=== PATIENT | female | born 1990 | race Caucasian/White ===

== ENCOUNTER → 2019-11-25 14:04 | Outpatient (BNVA) | payer MEDICAID, SELFPAY | PROVIDERS: Family Provider Nurse Practitioner Family; PCP Nurse Practitioner Family; Visit Provider Nurse Practitioner Family | DX: M79.675 Pain in left toe(s) (principal); E28.2 Polycystic ovarian syndrome | CPT/HCPCS: 73630; 80053; 80061; 84443; 85025 ==

== ENCOUNTER → 2020-01-05 13:08 | Outpatient (BNVA) | payer MEDICAID, SELFPAY | PROVIDERS: Family Provider Nurse Practitioner Family; PCP Nurse Practitioner Family; Visit Provider Specialist | DX: G43.019 Migraine without aura, intractable, without status migrainosus (principal); F41.9 Anxiety disorder, unspecified; F32.9 Major depressive disorder, single episode, unspecified | CPT/HCPCS: 99213 ==

== ENCOUNTER → 2020-02-03 15:30 | Outpatient (BNVA) | payer MEDICAID, SELFPAY | PROVIDERS: Family Provider Nurse Practitioner Family; PCP Nurse Practitioner Family; Visit Provider Podiatrist Foot & Ankle Surgery | DX: M25.872 Other specified joint disorders, left ankle and foot (principal); M79.672 Pain in left foot | CPT/HCPCS: 73630 ==

== ENCOUNTER → 2020-02-26 14:26 | Outpatient (BNVA) | payer MEDICAID, SELFPAY | PROVIDERS: Family Provider Nurse Practitioner Family; PCP Nurse Practitioner Family; Visit Provider Podiatrist Foot & Ankle Surgery | DX: M79.675 Pain in left toe(s) (principal) | CPT/HCPCS: 73630 ==

== ENCOUNTER → 2020-03-25 16:19 | Outpatient (BNVA) | payer MEDICAID, SELFPAY | PROVIDERS: Family Provider Nurse Practitioner Family; PCP Nurse Practitioner Family; Visit Provider Nurse Practitioner Family | DX: N39.0 Urinary tract infection, site not specified (principal) | CPT/HCPCS: 81003; 87086 ==

== ENCOUNTER → 2020-03-29 13:47 | Outpatient (BNVA) | payer MEDICAID, SELFPAY | PROVIDERS: Family Provider Nurse Practitioner Family; PCP Nurse Practitioner Family; Visit Provider Podiatrist Foot & Ankle Surgery | DX: M79.675 Pain in left toe(s) (principal); S92.902D Unspecified fracture of left foot, subsequent encounter for fracture with routine healing; X58.XXXD Exposure to other specified factors, subsequent encounter | CPT/HCPCS: 73630 ==

== ENCOUNTER → 2020-04-06 14:08 | Outpatient (BNVA) | payer MEDICAID, SELFPAY | PROVIDERS: Family Provider Nurse Practitioner Family; PCP Nurse Practitioner Family; Visit Provider Podiatrist Foot & Ankle Surgery | DX: S92.812A Other fracture of left foot, initial encounter for closed fracture (principal); X58.XXXA Exposure to other specified factors, initial encounter; M79.675 Pain in left toe(s) | CPT/HCPCS: 73620 ==

== ENCOUNTER → 2020-05-04 14:53 | Outpatient (BNVA) | payer MEDICAID, SELFPAY | PROVIDERS: Family Provider Nurse Practitioner Family; PCP Nurse Practitioner Family; Visit Provider Urology | DX: N39.0 Urinary tract infection, site not specified (principal) | CPT/HCPCS: 81003 ==

== ENCOUNTER → 2020-05-06 13:59 | Outpatient (BNVA) | payer BC, SELFPAY | PROVIDERS: Family Provider Nurse Practitioner Family; PCP Nurse Practitioner Family; Visit Provider Podiatrist Foot & Ankle Surgery | DX: M79.675 Pain in left toe(s) (principal); S92.902A Unspecified fracture of left foot, initial encounter for closed fracture; X58.XXXA Exposure to other specified factors, initial encounter | CPT/HCPCS: 73620 ==

== ENCOUNTER → 2020-05-10 09:17 | Outpatient (BNVA) | payer BC, MEDICAID, SELFPAY | PROVIDERS: Family Provider Nurse Practitioner Family; PCP Nurse Practitioner Family; Visit Provider Nurse Practitioner Family | DX: Z11.1 Encounter for screening for respiratory tuberculosis (principal) | CPT/HCPCS: 86580 ==

== ENCOUNTER → 2020-05-25 16:23 | Outpatient (BNVA) | payer BC, SELFPAY | PROVIDERS: Family Provider Nurse Practitioner Family; PCP Nurse Practitioner Family; Visit Provider Nurse Practitioner Family | DX: Z11.3 Encounter for screening for infections with a predominantly sexual mode of transmission (principal) | CPT/HCPCS: 86592; 87491; 87530; 87591; 87661; 87806 ==

== ENCOUNTER → 2020-05-27 14:07 | Outpatient (BNVA) | payer BC, MEDICAID, SELFPAY | PROVIDERS: Family Provider Nurse Practitioner Family; PCP Nurse Practitioner Family; Visit Provider Podiatrist Foot & Ankle Surgery | DX: S92.902A Unspecified fracture of left foot, initial encounter for closed fracture (principal); X58.XXXA Exposure to other specified factors, initial encounter; M79.675 Pain in left toe(s) | CPT/HCPCS: 73630 ==

== ENCOUNTER → 2020-06-23 14:44 | Outpatient (BNVA) | payer BC, MEDICAID, SELFPAY | PROVIDERS: Family Provider Nurse Practitioner Family; PCP Nurse Practitioner Family; Visit Provider Specialist | DX: G43.711 Chronic migraine without aura, intractable, with status migrainosus (principal); Z87.891 Personal history of nicotine dependence | CPT/HCPCS: 99212; 99213 ==

== ENCOUNTER → 2020-06-24 13:56 | Outpatient (BNVA) | payer BC, MEDICAID, SELFPAY | PROVIDERS: Family Provider Nurse Practitioner Family; PCP Nurse Practitioner Family; Visit Provider Podiatrist Foot & Ankle Surgery | DX: S92.902D Unspecified fracture of left foot, subsequent encounter for fracture with routine healing (principal); X58.XXXD Exposure to other specified factors, subsequent encounter; M79.675 Pain in left toe(s) | CPT/HCPCS: 73630 ==

== ENCOUNTER → 2020-07-20 15:57 | Outpatient (BNVA) | payer BC, SELFPAY | PROVIDERS: Family Provider Nurse Practitioner Family; PCP Nurse Practitioner Family; Visit Provider Urology | DX: N39.0 Urinary tract infection, site not specified (principal) | CPT/HCPCS: 81003 ==

== ENCOUNTER → 2020-08-30 13:42 | Outpatient (BNVA) | payer BC, SELFPAY | PROVIDERS: Family Provider Nurse Practitioner Family; PCP Nurse Practitioner Family; Visit Provider Podiatrist Foot & Ankle Surgery | DX: Z01.812 Encounter for preprocedural laboratory examination (principal); Z20.822 Contact with and (suspected) exposure to COVID-19 | CPT/HCPCS: 87635 ==

== ENCOUNTER 2020-09-03 05:46 | Day surgery (SDC) | payer BC, MEDICAID, SELFPAY ==
[2020-09-02 15:42] VITALS: BMI 22.0
[2020-09-03] VITALS (7 sets, daily range): BP systolic 89–121; BP diastolic 60–84; PULSE 62–88; RESP 16–20; TEMP 36.1–36.8; O2SAT 98–100
[2020-09-03] MEDS: sodium chloride 0.9% 1,000 ML 30 ML IV (06:24)
--- NOTE | 2020-09-03 06:33 | ANES.PREANE2 ---
Pre-Anesthetic Assessment Pre-Anesthetic Assessment: Height/Weight: Height 1.73 m Weight 65.771 kg Temp Pulse Resp BP Pulse Ox 97.1 F L 81 18 105/69 98 09/03/20 06:02 09/03/20 06:02 09/03/20 06:02 09/03/20 06:02 09/03/20 06:02 Preop Diagnosis: Left foot sesamoid fracture Proposed Procedure: Operation Date: 09/03/20 07:00 Proposed Procedures p Fibular sesamoidectomy, left foot [id number] S92.812S(Not Applicable) - Fransico Contreras DPM Familial anesthetic complications: none Was Beta Keanu taken within 24 hours: N/A Was Clonidine taken within 24 hours: N/A Last intake: solids > 8 hrs water 0400 Social: Social History: No alcohol and No tobacco Exam: Pre-Anes Outpt Exam: alert, oriented x 3, clear to auscultation bilaterally and regular rate & rhythm Airway: Cervical ROM: WNL MP: 1 Dentition: Full Metabolic: Comments: pcos Anesthetic Plan: ASA status: 2 Anesthesia: MAC Risk of > 500 ml blood loss (7ml/kg in children): No Meds/Allergies Current Medications: Current Medications Generic Name Dose Route Start Last Admin Trade Name Freq PRN Reason Stop Dose Admin Sodium Chloride 1,000 mls @ 30 ml s/hr 09/03/20 06:00 09/03/20 06:24 Sodium Chloride 0.9% IV 09/04/20 05:59 30 mls/hr .Q24H HE Administration PFSH Anesthesia PFSH: Medical History Anxiety and depression Migraine headache No pertinent past medical history neghx: htn,dm,thyroid,dvt/pe PCOS (polycystic ovarian syndrome) Recurrent UTI Surgical History H/O wisdom tooth extraction S/P tonsillectomy and adenoidectomy Family History Father Diabetes Grandmother Hypertension Maternal Hypercholesteremia Maternal Family/Other Breast cancer Paternal Great Grandmother--- dx age unknown Grandfather Hypercholesteremia Maternal Denies family history of Colon cancer Ovarian cancer Heart disease Bleeding disorder Uterine cancer Thyroid disease Stroke Social History Smoking and tobacco status: former smoker Second hand smoke exposure: No Smoking risk assessment/counseling performed?: No Alcohol intake: current Alcohol intake frequency: holidays/special occasions only Desire information about alcohol rehabilitation?: No Counseling given: No Last alcohol use date: 05/23/20 Desire information about substance/drug rehabilitation?: No Counseling given: No Adopted: No Caregiver/support person: No Lives independently: Yes Housing: House Marital status: Current occupational status: student History of recent travel: No Special derrick needs: No Female Reproductive History: Date of last menstrual period: 08/16/20 Data Anesthesia Cardiac Studies: No Data to Display
[2020-09-03 06:48] LABS: OR HCG Qualitative Urine Negative (Negative)
--- NOTE | 2020-09-03 06:51 | P.HPUD_ITS ---
Surgery/Procedure H&P Update DATE OF PROCEDURE: September 03, 2020 DATE H&P PERFORMED: 09/03/20 H&P UPDATE INFORMATION: I have reviewed H&P completed within last 30 days, I have examined patient prior to procedure, No changes to prior documentation and H&P is in [facility] EMR on date indicated PREOP DIAGNOSIS: Left foot sesamoid fracture PLANNED PROCEDURE: Operation Date: 09/03/20 07:00 Proposed Procedures p Fibular sesamoidectomy, left foot [id number] S92.812S(Not Applicable) - Fransico Contreras DPM
--- NOTE | 2020-09-03 06:52 | P.HP_ITS ---
Providers/Chief Complaint Primary Care Provider: FRANCESCA Arreaga Chief Complaint: Fibular sesamoidectomy, left foot History of Present Illness Beryl Kaufman is a 30 year old female with sesamoid pain left foot has been treated actively for 7 months with pain greater than a year. Previous treatments have included offloading with nonweightbearing, cam boot, protected weightbearing, sesamoid pad, bone stimulator without relief. She has a fractured left fibular sesamoid with pain to this area that has been persistent and on a daily basis with standing and walking. She presents for surgical consultation. She is accompanied by her mother. Patient denies any subjective nausea, vomiting, fever, chills, shortness of breath or chest pain. Review of Systems General: Reports: 10 or more systems reviewed and unremarkable except in HPI and below Const: Denies: fever(s) or chills Eyes: Denies: change in vision Card: Denies: chest pain or palpitations Resp: Denies: dyspnea or productive cough GI: Denies: abdominal pain, nausea or vomiting : Denies: flank pain Musc: Reports: extremity pain Skin/Breast: Denies: rash Neuro: Denies: numbness in extremities, sensory changes or frequent falls Psych: Denies: suicidal ideation Rl/Lymph: Denies: easy bruising Medications/Allergies Home Medications Medication Instructions Recorded Confirmed Last Taken Type venlafaxine 150 mg 150 mg PO DAILY #90 cap 01/05/20 09/02/20 Unknown Rx capsule,extended release 24 hr cetirizine 10 mg tablet 10 mg PO DAILY PRN tab 03/16/20 09/02/20 Unknown History fluticasone propionate 50 2 spray INTRANASAL DAILY PRN ml 03/16/20 09/02/20 Unknown History mcg/actuation nasal spray,suspension doxycycline hyclate 100 mg tablet 100 mg PO BID #60 tab 07/20/20 09/02/20 Unknown Rx levonorgestrel 0.15 mg-ethinyl 1 tab PO DAILY 07/20/20 09/02/20 Unknown History estradiol 0.03 mg tablet topiramate 25 mg tablet 50 mg PO .qod tab 07/20/20 09/02/20 Unknown History Allergies Allergy/AdvReac Type Severity Reaction Status Date / Time Sulfa (Sulfonamide Allergy Unknown unknown Verified 07/20/20 16:06 Antibiotics) PFSH PFSH: Medical History Anxiety and depression Migraine headache No pertinent past medical history neghx: htn,dm,thyroid,dvt/pe PCOS (polycystic ovarian syndrome) Recurrent UTI Surgical History H/O wisdom tooth extraction S/P tonsillectomy and adenoidectomy Family History Father Diabetes Grandmother Hypertension Maternal Hypercholesteremia Maternal Family/Other Breast cancer Paternal Great Grandmother--- dx age unknown Grandfather Hypercholesteremia Maternal Denies family history of Colon cancer Ovarian cancer Heart disease Bleeding disorder Uterine cancer Thyroid disease Stroke Social History Smoking and tobacco status: former smoker Second hand smoke exposure: No Smoking risk assessment/counseling performed?: No Alcohol intake: current Alcohol intake frequency: holidays/special occasions only Desire information about alcohol rehabilitation?: No Counseling given: No Last alcohol use date: 05/23/20 Desire information about substance/drug rehabilitation?: No Counseling given: No Adopted: No Caregiver/support person: No Lives independently: Yes Housing: House Marital status: Current occupational status: student History of recent travel: No Special derrick needs: No Female Reproductive History: Date of last menstrual period: 08/16/20 Vital Signs Vitals Signs: Last Vital Signs Temp 97.1 F L 09/03/20 06:02 Pulse 81 09/03/20 06:02 Resp 18 09/03/20 06:02 BP 105/69 09/03/20 06:02 Pulse Ox 98 09/03/20 06:02 Weight: Weight last 48 hrs Weight 145 lb Weight 145 lb Physical Exam Narrative: EXAM NARRATIVE: atient is alert and oriented ?3 and in no acute distress. The following is a focused bilateral lower extremity exam. VASCULAR: Dorsalis pedis and posterior tibial arteries palpable +2. Capillary refill time less than 3 seconds to the distal hallux bilaterally. Calf is supple and nontender proximally and distally. No pedal edema appreciated. Pedal hair growth present. NEUROLOGICAL: Epicritic and protopathic sensations grossly intact to the lower extremities. +2 Achilles tendon reflex noted bilaterally. Negative Tinel sign upon percussion of lower extremity nerves. DERMATOLOGICAL: Lower extremity skin is well-hydrated, normal texture and turgor. There are no open sores or lesions noted to the lower extremities. No erythema or ecchymosis present to the bilateral legs and feet. MUSCULOSKELETAL: Tenderness to palpation at left fibular sesamoid, pain with range of motion of left first metatarsophalangeal joint. Muscle strength 5 out of 5 in all 3 cardinal planes to bilateral foot and ankle. Ankle joint dorsiflexion is 10 degrees beyond neutral bilaterally. Resp: COMMON NORMALS: normal respiratory effort, No retractions, No use of accessory muscles and clear to auscultation bilaterally EFFORT & INSPECTION: Yes able to speak in complete sentences and Yes symmetric chest movement Cardio: COMMON NORMALS: regular rate, regular rhythm and Peripheral pulses 2+ throughout A&P Assessment and plan (1) Closed fracture of sesamoid bone of left foot with delayed healing: Status: Acute Patient experiencing a recurrence of pain at her fibular sesamoid fracture left foot. X-rays today continues to show no interval of healing, fracture is subacute, previous x-rays on file show intact fibular sesamoid, repeat x-rays after patient began experiencing pain shows obvious fragmentation of the fibular sesamoid. No obvious interval of healing, no loss in density suggestive of osteonecrosis. Continue with bone stimulator for nonunion left fibular sesamoid fracture. Continue offloading with cam boot. At this point she is ready discussed and planned surgical intervention. This would entail sesamoidectomy would begin with removal of the distal fragment and inspect viability of the proximal fragment and soft tissue repair of any plantar plate apparatus pathology. Discussed risks of surgery perioperatively including but not limited to pain, bleeding, numbness, infection, delayed healing, failure to alleviate pain. Varus deformity of hallux after sesamoidectomy, elevated great toe, painful scar tissue, need for further surgical intervention, painful scar on weightbearing surface. DVT, PE, heart attack, stroke and . Discussed DVT prophylaxis utilizing 81 mg aspirin once daily. Left fibular sesamoidectomy, date of surgery September 03, 2020, outpatient, MAC anesthesia duration of procedure 60 minutes. 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
--- NOTE | 2020-09-03 07:40 | P.OP_ITS ---
Operative Report Date of procedure: September 03, 2020 Pre-op Diagnosis: Left foot sesamoid fracture Post-op diagnosis: same Post-op Findings: Fractured fibular sesamoid left foot Procedure Done: Fibular sesamoidectomy, left foot [id number] Implants: 3-0 Prolene Pathology: none sent Surgeon: Fransico Contreras D.P.M. Anesthesia: MAC Estimated blood loss: Less than 5 mL Tourniquet time (min): 25 IV fluids: None Urine output: None Complications: None Findings: Fractured fibular sesamoid left foot Condition: stable Disposition: PACU Brief History: Fractured left fibular sesamoid nonresponsive to conservative care for greater than 7 months with symptoms lasting greater than 1 year. Recommended stepwise approach of excision of fracture fragment with possible total excision should there be any signs of avascular necrosis. Risks include pain, bleeding, numbness, infection, hallux varus, cock-up toe. Painful scar, transfer pressure and transfer lesion surgical site dehiscence, keloid scar, failure to alleviate pain altered mechanics and need for further surgical intervention. Informed consent signed by myself and patient. She is n.p.o. since midnight. I initialed her left foot. Patient is agreeable and wishes to proceed. No guarantees written, expressed or implied. Procedure: Under mild sedation the patient was brought to the operating room and placed on the operating table in supine position. A timeout was performed. Anesthesia was then administered by the anesthesia service. Local anesthesia injected by myself left Mejia block technique utilizing Marcaine 0.5%. Well- padded pneumatic tourniquet was applied to the left ankle. Left lower extremity was then scrubbed, prepped and draped utilizing normal aseptic technique. Left foot was examined a weighted with an Esmarch bandage and a tourniquet inflated to 250 mmHg. Attention was directed to the plantar aspect of the left first metatarsophalangeal joint where the fibular sesamoid was palpated. Head of the first metatarsal and second metatarsal are palpated and within the first intermetatarsal space a linear longitudinal incision was made with a #15 blade. Incision was placed lateral to the fibular sesamoid and medial to the second metatarsal head to avoid weightbearing complications under bony prominence. Dissection was carried down through subcutaneous tissue down the layer of deep fascia and flexor tendons utilizing a combination of blunt and sharp technique. All bleeders were ligated and cauterized as necessary care was taken to retract and preserve neurovascular tendinous structures. Linear incision is made over the fibular sesamoid distally and the distal fragment was shelled out sharply and passed from operative field this was consistent with a fracture due to its jagged edges. The main body of the fibular sesamoid was then evaluated and noted to be appropriate density and color without clinical signs of avascular necrosis. Decision was made to leave this intact. Incision was flushed with saline solution and skin closed utilizing 3-0 Prolene in a single layer fashion with simple interrupted suture technique. Incision site was dressed with Adaptic, sterile 4 x 4, Kerlix, Yovany wrap and cam boot was applied. Tourniquet was deflated and a prompt hyperemic response is noted to the distal digits of the left foot. Patient tolerated the procedure and anesthesia well and was transferred to the PACU with vital signs stable and vascular status intact. Following a period of post operative monitoring she will be discharged home with her mother.
--- NOTE | 2020-09-03 07:55 | XR_ITS ---
WS: [id number] Left foot, 3 views, 09/03/2020 Clinical Data: post op Comparison: Left foot, 06/24/2020. Findings: The lateral sesamoid bone of the distal left first metatarsal demonstrates that the distal portion grant s been removed. There is air on the plantar surface of the left foot XR/XR foot LT min 3V* [id number] Impression: Surgery on the sesamoid of the left first metatarsal.
--- NOTE | 2020-09-03 08:12 | SUR.PHASEI ---
0800 PT AWAKE ALERT DISTAL TOES PINK WARM FOOT ELEVATED VSS PT ALERT TALKATIVE WANTS TO SEE MOM AND GET HER HEARING AIDS IN. PT TO OPS HANDOFF AT BEDSIDE.
--- NOTE | 2020-09-03 13:15 | ANE.PACU2 ---
Inpatient post-anesthesia follow up: Airway intact: Yes Vital signs: Temperature 97 F Pulse Rate 62 Respiratory Rate 18 Blood Pressure 110/84 Pulse Oximetry 100 Oxygen Delivery Me thod Room Air Oxygen Flow Rate 8 Fraction of Inspir ed Oxygen Hydration adequate: Yes Nausea and vomiting: No Pain level: 2 Mental status: Baseline
== END 2020-09-03 08:50 | disposition home or self-care (01) ==
PROVIDERS: Anesthesiology; PCP Nurse Practitioner Family; Visit Provider Podiatrist Foot & Ankle Surgery
PROC: (CPT 28292; principal; 2020-09-03 07:00)
DX: S92.812G Other fracture of left foot, subsequent encounter for fracture with delayed healing (principal); X58.XXXD Exposure to other specified factors, subsequent encounter; E28.2 Polycystic ovarian syndrome; Z87.891 Personal history of nicotine dependence
CPT/HCPCS: 28315; 73630; 84703; 96365; C9290; J0690; J1100; J2250; J2405; J2704; J3010; J3490; J7030

== ENCOUNTER → 2020-09-07 13:02 | Outpatient (BNVA) | payer BC, SELFPAY | PROVIDERS: PCP Nurse Practitioner Family; Visit Provider Nurse Practitioner Family | DX: N39.0 Urinary tract infection, site not specified (principal) | CPT/HCPCS: 81003; 87086 ==

== ENCOUNTER → 2020-10-27 13:52 | Outpatient (BNVA) | payer BC, MEDICAID, SELFPAY | PROVIDERS: PCP Nurse Practitioner Family; Visit Provider Urology | DX: N39.0 Urinary tract infection, site not specified (principal) | CPT/HCPCS: 81003 ==

== ENCOUNTER → 2020-11-15 11:48 | Outpatient (BNVA) | payer BC, MEDICAID, SELFPAY | PROVIDERS: PCP Nurse Practitioner Family; Visit Provider Nurse Practitioner Family | DX: J02.9 Acute pharyngitis, unspecified (principal); F41.9 Anxiety disorder, unspecified; F32.9 Major depressive disorder, single episode, unspecified | CPT/HCPCS: 87071; 87880 ==

== ENCOUNTER → 2021-02-02 15:59 | Outpatient (BNVA) | payer BC, MEDICAID, SELFPAY | PROVIDERS: PCP Nurse Practitioner Family; Visit Provider Urology | DX: N30.20 Other chronic cystitis without hematuria (principal) | CPT/HCPCS: 81003 ==

== ENCOUNTER → 2021-05-12 11:30 | Outpatient (BNVA) | payer BC, MEDICAID, SELFPAY | PROVIDERS: PCP Nurse Practitioner Family; Visit Provider Nurse Practitioner Family | DX: Z20.822 Contact with and (suspected) exposure to COVID-19 (principal) | CPT/HCPCS: 87071; 87635; 87880 ==

== ENCOUNTER → 2021-06-29 07:55 | Outpatient (BNVA) | payer BC, MEDICAID, SELFPAY | PROVIDERS: PCP Nurse Practitioner Family; Visit Provider Specialist | DX: G43.011 Migraine without aura, intractable, with status migrainosus (principal) | CPT/HCPCS: 99212; 99213 ==

== ENCOUNTER → 2021-07-13 16:41 | Outpatient (BNVA) | payer BC, MEDICAID, SELFPAY | PROVIDERS: PCP Nurse Practitioner Family; Visit Provider Nurse Practitioner Family | DX: J32.9 Chronic sinusitis, unspecified (principal) | CPT/HCPCS: 87071; 87880 ==

== ENCOUNTER → 2021-09-01 10:59 | Outpatient (BNVA) | payer BC, MEDICAID, SELFPAY | PROVIDERS: PCP Nurse Practitioner Family; Visit Provider Nurse Practitioner Women's Health | DX: N92.1 Excessive and frequent menstruation with irregular cycle (principal); E28.2 Polycystic ovarian syndrome | CPT/HCPCS: 84443; 84702; 85025 ==

== ENCOUNTER → 2021-09-16 11:04 | Outpatient (BNVA) | payer BC, MEDICAID, SELFPAY | PROVIDERS: PCP Nurse Practitioner Family; Visit Provider Nurse Practitioner Women's Health | DX: E28.2 Polycystic ovarian syndrome (principal) | CPT/HCPCS: 76830 ==